=== PATIENT | female | born 1950 | race Hispanic/Latino ===

== ENCOUNTER 2017-12-31 10:53 | Emergency (ER) | payer MEDICARE ==
[2017-12-31] MEDS ORDERED: NACL 0.9% 1000 ML 1,000 ML IV ONE ×3 (11:13→12:42)
[2017-12-31 11:27] LABS: Basophils % (Auto) 0.5 % (0.0-1.8); Eosinophils # (Auto) 0.2 K/mm3 (0.0-0.4); Hematocrit 33.4 % (30.3-42.9); Lymphocytes # (Auto) 1.4 K/mm3 (1.2-5.4); Lymphocytes % (Auto) 16.3 % (13.4-35.0); Mean Corpuscular HGB Conc 33 % (30-34); Mean Corpuscular Hemoglobin 27 pg (28-32); Mean Corpuscular Volume 81 fl (79-97); Monocytes # (Auto) 0.8 K/mm3 (0.0-0.8); Monocytes % (Auto) 9.3 % (0.0-7.3); Platelet Count 243 K/mm3 (140-440); Red Blood Count 4.14 M/mm3 (3.65-5.03)
[2017-12-31 11:47] LABS: Alanine Aminotransferase 8 units/L (7-56); Albumin 4.1 g/dL (3.9-5); BUN/Creatinine Ratio 7; Blood Urea Nitrogen 5 mg/dL (7-17); Calcium 8.9 mg/dL (8.4-10.2); Hemolysis Index 3
[2017-12-31 12:03] LABS: Bacteria,Urine 1+ /HPF (Negative); Bilirubin,Urine NEG (Negative); Blood,Urine NEG (Negative); Color,Urine Yellow (Yellow); Protein,Urine <15 mg/dL mg/dL (Negative); Urobilinogen,Urine < 2.0 mg/dL (<2.0)
[2017-12-31] MEDS ORDERED: PEPCID IV ONE (12:41)
[2017-12-31] MEDS ORDERED: BENTYL IM ONE (12:41)
[2017-12-31] MEDS ORDERED: TORADOL IV ONE (12:43)
--- NOTE | 2017-12-31 12:45 | Emergency Department Report ---
Blank Doc - Documentation Documentation: Patient is a 67-year-old female who is presenting with right upper quadrant pain nausea vomiting diarrhea for the past 4 days. Patient is has some episodes of being weak and dizzy as well. Patient denies fever. Patient denies hematemesis or hematochezia. Patient had a Whipple procedure done approximately 10 years ago. Patient has a history of system or pancreas. Patient on focused physical exam does have some right upper quadrant tenderness but no rebound or guarding active bowel sounds. Patient will be moved to a treatment room for IV fluids. After reviewing the patient's initial labs done on nurse protocol sodium was 129. Patient be given this for symptomatically relief and a CT will be ordered as well.
--- NOTE | 2017-12-31 14:25 | Cat Scan Report ---
FINAL REPORT EXAM: CT ABDOMEN PELVIS W CON HISTORY: NVD RUQ pain hx of whipple TECHNIQUE: CT examination of the ABDOMEN after IV contrast CT examination of the PELVIS after IV contrast PRIORS: 11/12/2013 FINDINGS: Degenerative change in the regional skeleton. 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 Stable severe compression fracture deformity of T12 with retropulsion and central canal stenosis. Stable slight upper endplate compression fracture deformities of L1 and L2. Stable slight compression fracture deformity of L3. Left proximal femur hardware in place. Surgically absent gallbladder. Peripancreatic postoperative change compatible with history of Whipple's procedure. Normal-appearing liver, adrenals, remnant pancreas, and spleen. Intact normal caliber abdominal aorta with severe calcified and noncalcified atherosclerotic plaque. Normal caliber IVC. Normal-appearing kidneys and ureters. Slight diastasis recti in the region of prior abdominal wall surgery. No inguinal hernia. No retroperitoneal adenopathy. No visible mesenteric mass. Normal-appearing stomach. Postoperative changes again noted in the duodenum. There is nonspecific new slight prominence of fluid in the right upper quadrant small bowel and new slight prominence of the common bile duct containing fluid. Common bile duct diameter 7 mm. These findings are nonspecific and may reflect paralytic ileus in the operative bed. No CT evidence of discrete new mass in the right upper quadrant. No gross small bowel distention in the abdomen and pelvis. No pelvic free fluid. No gross ascites, free air, or colonic distention. Normal-appearing cecum and terminal ileum. Appendix not visible. No pericecal inflammation. Nonspecific slight distention of the urinary bladder. Slight gas-filled distention of the rectum. Slight diverticulosis scattered in sigmoid colon. No CT evidence of diverticulitis. IMPRESSION: Nonspecific new prominence of fluid and caliber in right upper quadrant small bowel in the region of the Whipple's procedure. There is also new slight prominence of the common bile duct. No discrete CT evidence of mass or obstructing source. Change in the small bowel may reflect localized paralytic ileus Stable multiple compression fractures in the thoracic and lumbar spine Nonspecific distention of the urinary bladder and gas-filled distention of the rectum Slight sigmoid diverticulosis without evidence of diverticulitis.
--- NOTE | 2017-12-31 15:25 | Emergency Department Report ---
ED Abdominal Pain HPI - General Chief Complaint: Nausea/Vomiting/Diarrhea Stated Complaint: NAUSEA/VOMITING/DIARRHEA Time Seen by Provider: 12/31/17 12:34 Source: patient Mode of arrival: Ambulatory Limitations: Physical Limitation - History of Present Illness Initial Comments: Patient is a 67-year-old female who is presenting with right upper quadrant pain nausea vomiting diarrhea for the past 4 days. Patient is has some episodes of being weak and dizzy as well. Patient denies fever. Patient denies hematemesis or hematochezia. Patient had a Whipple procedure done approximately 10 years ago. Patient has a history of system or pancreas. Location: RUQ Radiation: none Severity scale (0 -10): 8 Quality: aching Consistency: constant Associated Symptoms: nausea, vomiting, diarrhea. denies: fever, dysuria, hematemesis, hematochezia - Related Data Home Medications Medication Instructions Recorded Confirmed Last Taken ALBUTEROL Inhaler (OR & NICU) 1 puff IH PRN PRN 11/12/13 11/12/13 11/11/13 [ProAir HFA Inhaler] ALBUTEROL NEB's [Proventil 0.083% 3 ml INHALATION Q6H 11/12/13 11/12/13 11/11/13 NEBS] Dexlansoprazole [Dexilant] 60 mg PO DAILY 11/12/13 11/12/13 11/11/13 Ergocalciferol [Vitamin D2] 1 cap PO QWEEK 11/12/13 11/12/13 11/06/13 HYDROcodone/ACETAMINOPHEN 1 each PO TID 11/12/13 11/12/13 11/11/13 [Hydrocodon-Acetaminophn 10-325] Hyoscyamine Sr (Nf) [Hyomax SR TAB] 1 tab PO Q12H 11/12/13 11/12/13 11/11/13 Ibuprofen [Motrin 800 MG tab] 800 mg PO Q6H PRN 11/12/13 11/12/13 11/11/13 16:00 Ipratropium [place] 0.2 mg IH QID 11/12/13 11/12/13 11/11/13 Lipase/Protease/Amylase [Creon Dr 2 - 3 cap PO TIDWM 11/12/13 11/12/13 11/11/13 12,000 Units Capsule] Nystatin/Lidocaine/Diphenhyd 5 ml MM QID 11/12/13 11/12/13 11/11/13 [First-Bxn Mouthwash] Perampanel [Fycompa] 2 mg PO HS 11/12/13 11/12/13 11/11/13 Promethazine [Phenergan TAB] 25 mg PO BID 11/12/13 11/12/13 11/11/13 Spironolactone 50 mg PO BID 11/12/13 11/12/13 11/11/13 Umeclidinium Brm/Vilanterol Tr 1 inh INHALATION DAILY 11/12/13 11/12/13 11/11/13 [Anoro Ellipta 62.5-25 Mcg INH] cloNIDine [Catapres] 0.1 mg PO Q4HR PRN 11/12/13 11/12/13 10/23/13 fentaNYL [Duragesic 100mcg] 1 each TD Q72HR 11/12/13 11/12/13 11/09/13 Previous Rx's Medication Instructions Recorded Last Taken Type Insulin Glargine,Hum.rec.anlog 20 unit SQ QHS #1 vial 11/14/13 Unknown Rx [Lantus] Insulin Glulisine [Apidra] 0 - 10 units SUB-Q AC PRN #1 vial 11/14/13 Unknown Rx predniSONE [Deltasone] 40 mg PO QDAY #33 tablet 11/14/13 Unknown Rx Promethazine [Phenergan TAB] 25 mg PO Q6HR PRN #10 tab 12/31/17 Unknown Rx Promethazine [Phenergan] 25 mg PA Q6HR PRN #7 supp.rect 12/31/17 Unknown Rx Allergies Allergy/AdvReac Type Severity Reaction Status Date / Time butorphanol tartrate Allergy Shortness Verified 11/12/13 00:29 [From Stadol] of Breath gabapentin [From Neurontin] Allergy Swelling Verified 09/03/15 13:08 levetiracetam [From Keppra] Allergy Seizure Verified 11/12/13 00:29 methadone [Methadone] Allergy Hives Verified 11/12/13 00:29 omeprazole [From Prilosec] Allergy Swelling Verified 11/12/13 00:29 omeprazole magnesium Allergy Swelling Verified 11/12/13 00:29 [From Prilosec] ondansetron HCl [From Zofran] Allergy Hives Verified 11/12/13 00:29 prednisone Allergy Unknown Verified 11/12/13 00:29 ED Review of Systems ROS: Stated complaint: NAUSEA/VOMITING/DIARRHEA Other details as noted in HPI Comment: All other systems reviewed and negative ED Past Medical Hx - Past Medical History Previous Medical History?: Yes Hx Hypertension: Yes Hx Congestive Heart Failure: No Hx Diabetes: No Hx Arthritis: Yes Hx Seizures: Yes Hx Psychiatric Treatment: Yes (depression) Hx Asthma: Yes Hx COPD: Yes Additional medical history: pancreatitis. endometriosis - Surgical History Past Surgical History?: Yes Hx Cholecystectomy: Yes Hx Appendectomy: Yes Additional Surgical History: hysterectomy, x2, hernia repair, whipple. cataract surgery - Social History Smoking Status: Current Every Day Smoker Substance Use Type: Prescribed, Tranquilizers - Medications Home Medications: Home Medications Medication Instructions Recorded Confirmed Last Taken Type ALBUTEROL Inhaler (OR & NICU) 1 puff IH PRN PRN 11/12/13 11/12/13 11/11/13 History [ProAir HFA Inhaler] ALBUTEROL NEB's [Proventil 0.083% 3 ml INHALATION Q6H 11/12/13 11/12/13 History NEBS] Dexlansoprazole [Dexilant] 60 mg PO DAILY 11/12/13 11/12/13 11/11/13 History Ergocalciferol [Vitamin D2] 1 cap PO QWEEK 11/12/13 11/12/13 11/06/13 History HYDROcodone/ACETAMINOPHEN 1 each PO TID 11/12/13 11/12/13 11/11/13 History [Hydrocodon-Acetaminophn 10-325] Hyoscyamine Sr (Nf) [Hyomax SR TAB] 1 tab PO Q12H 11/12/13 11/12/13 11/11/13 History Ibuprofen [Motrin 800 MG tab] 800 mg PO Q6H PRN 11/12/13 11/12/13 11/11/13 16: 00 History Ipratropium [place] 0.2 mg IH QID 11/12/13 11/12/13 11/11/13 History Lipase/Protease/Amylase [Creon Dr 2 - 3 cap PO TIDWM 07/11/12/13 11/11/13 History 12,000 Units Capsule] Nystatin/Lidocaine/Diphenhyd 5 ml MM QID 11/12/13 11/12/13 11/11/13 History [First-Bxn Mouthwash] Perampanel [Fycompa] 2 mg PO HS 11/12/13 11/12/13 11/11/13 History Promethazine [Phenergan TAB] 25 mg PO BID 11/12/13 11/12/13 11/11/13 History Spironolactone 50 mg PO BID 11/12/13 11/12/13 11/11/13 History Umeclidinium Brm/Vilanterol Tr 1 inh INHALATION DAILY 11/12/13 11/12/13 History [Anoro Ellipta 62.5-25 Mcg INH] cloNIDine [Catapres] 0.1 mg PO Q4HR PRN 11/12/13 11/12/13 10/23/13 History fentaNYL [Duragesic 100mcg] 1 each TD Q72HR 11/12/13 11/12/13 11/09/13 History Insulin Glargine,Hum.rec.anlog 20 unit SQ QHS #1 vial 11/14/13 Unknown Rx [Lantus] Insulin Glulisine [Apidra] 0 - 10 units SUB-Q AC PRN #1 vial 11/14/13 Unknown Rx predniSONE [Deltasone] 40 mg PO QDAY #33 tablet 11/14/13 Unknown Rx Promethazine [Phenergan TAB] 25 mg PO Q6HR PRN #10 tab 12/31/17 Unknown Rx Promethazine [Phenergan] 25 mg PA Q6HR PRN #7 supp.rect 12/31/17 Unknown Rx ED Physical Exam - General Limitations: Physical Limitation General appearance: alert, in no apparent distress - Head Head exam: Present: atraumatic, normocephalic - Eye Eye exam: Present: normal appearance - ENT ENT exam: Present: mucous membranes moist - Neck Neck exam: Present: normal inspection - Respiratory Respiratory exam: Present: normal lung sounds bilaterally. Absent: respiratory distress, wheezes, rales, rhonchi - Cardiovascular Cardiovascular Exam: Present: regular rate, normal rhythm, normal heart sounds. Absent: systolic murmur, diastolic murmur, rubs, gallop - GI/Abdominal GI/Abdominal exam: Present: soft, tenderness (RUQ), hyperactive bowel sounds. Absent: distended, guarding, rebound, rigid, mass, bruit, pulsatile mass - Extremities Exam Extremities exam: Present: normal inspection - Back Exam Back exam: Present: normal inspection - Neurological Exam Neurological exam: Present: alert, oriented X3 - Psychiatric Psychiatric exam: Present: normal affect, normal mood - Skin Skin exam: Present: warm, dry, intact, normal color. Absent: rash ED Course Vital Signs 12/31/17 11:09 Temperature 98.7 F Pulse Rate 94 H Respiratory 18 Rate Blood Pressure 150/52 O2 Sat by Pulse 94 Oximetry ED Medical Decision Making - Lab Data Result diagrams: 12/31/17 11:16 12/31/17 11:16 Lab Results 12/31/17 12/31/17 12/31/17 Range/Units 11:16 11:16 11:20 WBC 8.9 (4.5-11.0) K/mm3 RBC 4.14 (3.65-5.03) M/mm3 Hgb 11.0 (10.1-14.3) gm/dl Hct 33.4 (30.3-42.9) % MCV 81 (79-97) fl MCH 27 L (28-32) pg MCHC 33 (30-34) % RDW 18.0 H (13.2-15.2) % Plt Count 243 (140-440) K/mm3 Lymph % (Auto) 16.3 (13.4-35.0) % [place] % (Auto) 9.3 H (0.0-7.3) % Eos % (Auto) 2.0 (0.0-4.3) % Baso % (Auto) 0.5 (0.0-1.8) % Lymph # 1.4 (1.2-5.4) K/mm3 [place] # 0.8 (0.0-0.8) K/mm3 Eos # 0.2 (0.0-0.4) K/mm3 Baso # 0.0 (0.0-0.1) K/mm3 Seg Neutrophils % 71.9 H (40.0-70.0) % Seg Neutrophils # 6.4 (1.8-7.7) K/mm3 Sodium 129 L (137-145) mmol/L Potassium 4.1 (3.6-5.0) mmol/L Chloride 90.7 L (98-107) mmol/L Carbon Dioxide 28 (22-30) mmol/L Anion Gap 14 mmol/L BUN 5 L (7-17) mg/dL Creatinine 0.7 (0.7-1.2) mg/dL Estimated GFR > 60 ml/min BUN/Creatinine Ratio 7 % Glucose 123 H (65-100) mg/dL Calcium 8.9 (8.4-10.2) mg/dL Total Bilirubin 0.30 (0.1-1.2) mg/dL AST 12 (5-40) units/L ALT 8 (7-56) units/L Alkaline Phosphatase 86 (35-129) units/L Total Protein 6.5 (6.3-8.2) g/dL Albumin 4.1 (3.9-5) g/dL Albumin/Globulin Ratio 1.7 % Lipase 11 L (13-60) units/L Urine Color (Yellow) Urine Turbidity (Clear) Urine pH (5.0-7.0) Ur Specific Roff (1.003-1.030) Urine Protein (Negative) mg/dL Urine Glucose (UA) (Negative) mg/dL Urine Ketones (Negative) mg/dL Urine Blood (Negative) Urine Nitrite (Negative) Urine Bilirubin (Negative) Urine Urobilinogen (<2.0) mg/dL Ur Leukocyte Esterase (Negative) Urine WBC (Auto) (0.0-6.0) /HPF Urine RBC (Auto) (0.0-6.0) /HPF U Epithel Cells (Auto) (0-13.0) /HPF Urine Bacteria (Auto) (Negative) /HPF 12/31/17 Range/Units 11:47 WBC (4.5-11.0) K/mm3 RBC (3.65-5.03) M/mm3 Hgb (10.1-14.3) gm/dl Hct (30.3-42.9) % MCV (79-97) fl MCH (28-32) pg MCHC (30-34) % RDW (13.2-15.2) % Plt Count (140-440) K/mm3 Lymph % (Auto) (13.4-35.0) % [place] % (Auto) (0.0-7.3) % Eos % (Auto) (0.0-4.3) % Baso % (Auto) (0.0-1.8) % Lymph # (1.2-5.4) K/mm3 [place] # (0.0-0.8) K/mm3 Eos # (0.0-0.4) K/mm3 Baso # (0.0-0.1) K/mm3 Seg Neutrophils % (40.0-70.0) % Seg Neutrophils # (1.8-7.7) K/mm3 Sodium (137-145) mmol/L Potassium (3.6-5.0) mmol/L Chloride (98-107) mmol/L Carbon Dioxide (22-30) mmol/L Anion Gap mmol/L BUN (7-17) mg/dL Creatinine (0.7-1.2) mg/dL Estimated GFR ml/min BUN/Creatinine Ratio % Glucose (65-100) mg/dL Calcium (8.4-10.2) mg/dL Total Bilirubin (0.1-1.2) mg/dL AST (5-40) units/L ALT (7-56) units/L Alkaline Phosphatase (35-129) units/L Total Protein (6.3-8.2) g/dL Albumin (3.9-5) g/dL Albumin/Globulin Ratio % Lipase (13-60) units/L Urine Color Yellow (Yellow) Urine Turbidity Clear (Clear) Urine pH 6.0 (5.0-7.0) Ur Specific Roff 1.005 (1.003-1.030) Urine Protein <15 mg/dl (Negative) mg/dL Urine Glucose (UA) Neg (Negative) mg/dL Urine Ketones Neg (Negative) mg/dL Urine Blood Neg (Negative) Urine Nitrite Neg (Negative) Urine Bilirubin Neg (Negative) Urine Urobilinogen < 2.0 (<2.0) mg/dL Ur Leukocyte Esterase Sm (Negative) Urine WBC (Auto) 4.0 (0.0-6.0) /HPF Urine RBC (Auto) 3.0 (0.0-6.0) /HPF U Epithel Cells (Auto) 3.0 (0-13.0) /HPF Urine Bacteria (Auto) 1+ (Negative) /HPF - Radiology Data Patient: VIVIEN ODEN MR#: [id number] : 1950 Acct:[id number] Age/Sex: 67 / F ADM Date: 12/31/17 Loc: ED Attending Dr: Ordering Physician: CLINTON SIMS MD Date of Service: 12/31/17 Procedure(s): CT abdomen pelvis w con Accession Number(s): [id number] cc: CLINTON SIMS MD FINAL REPORT EXAM: CT ABDOMEN PELVIS W CON HISTORY: NVD RUQ pain hx of whipple TECHNIQUE: CT examination of the ABDOMEN after IV contrast CT examination of the PELVIS after IV contrast PRIORS: 11/12/2013 FINDINGS: Degenerative change in the regional skeleton. 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 Stable severe compression fracture deformity of T12 with retropulsion and central canal stenosis. Stable slight upper endplate compression fracture deformities of L1 and L2. Stable slight compression fracture deformity of L3. Left proximal femur hardware in place. Surgically absent gallbladder. Peripancreatic postoperative change compatible with history of Whipple's procedure. Normal-appearing liver, adrenals, remnant pancreas, and spleen. Intact normal caliber abdominal aorta with severe calcified and noncalcified atherosclerotic plaque. Normal caliber IVC. Normal-appearing kidneys and ureters. Slight diastasis recti in the region of prior abdominal wall surgery. No inguinal hernia. No retroperitoneal adenopathy. No visible mesenteric mass. Normal-appearing stomach. Postoperative changes again noted in the duodenum. There is nonspecific new slight prominence of fluid in the right upper quadrant small bowel and new slight prominence of the common bile duct containing fluid. Common bile duct diameter 7 mm. These findings are nonspecific and may reflect paralytic ileus in the operative bed. No CT evidence of discrete new mass in the right upper quadrant. No gross small bowel distention in the abdomen and pelvis. No pelvic free fluid. No gross ascites, free air, or colonic distention. Normal-appearing cecum and terminal ileum. Appendix not visible. No pericecal inflammation. Nonspecific slight distention of the urinary bladder. Slight gas-filled distention of the rectum. Slight diverticulosis scattered in sigmoid colon. No CT evidence of diverticulitis. IMPRESSION: Nonspecific new prominence of fluid and caliber in right upper quadrant small bowel in the region of the Whipple's procedure. There is also new slight prominence of the common bile duct. No discrete CT evidence of mass or obstructing source. Change in the small bowel may reflect localized paralytic ileus Stable multiple compression fractures in the thoracic and lumbar spine Nonspecific distention of the urinary bladder and gas-filled distention of the rectum Slight sigmoid diverticulosis without evidence of diverticulitis. Transcribed By: JP Dictated By: ALLYSSA ANDINO MD Electronically Authenticated By: ALLYSSA ANDINO MD Signed Date/Time: 12/31/17 1424 - Medical Decision Making Patient is 67-year-old female status post Whipple approximately 10 years ago who is presenting with right upper quadrant pain. Patient also says nausea vomiting diarrhea. Patient on laboratory studies show that she did have some moderate hyponatremia. Patient was given IV hydration. CT of the abdomen and pelvis showed that she does have a focal ileus in the right upper quadrant. At this visit with the patient and told her that my preference was to keep her in the hospital for continued monitoring and also continue IV fluids patient states that she does not want to stay and is adamant that she wants to see her doctor go home. Patient did sign AGAINST MEDICAL ADVICE form. Patient was given Zofran for her nausea so she can continue to try to hydrate herself at home. Critical care attestation.: If time is entered above; I have spent that time in minutes in the direct care of this critically ill patient, excluding procedure time. ED Disposition Clinical Impression: Ileus, Hyponatremia Disposition: -07 LEFT AGAINST MED ADVICE Is pt being admited?: No Condition: Stable Referrals: PRIMARY CAREMD [Primary Care Provider] - 3-5 Days Forms: AMA Form Time of Disposition: 15:27
[2017-12-31 15:39] VITALS: BP 142/60
== END 2017-12-31 15:37 | disposition left against medical advice (07) ==
LOC: ED 10:53
DX: K56.7 Ileus, unspecified (principal); E87.1 Hypo-osmolality and hyponatremia; I10 Essential (primary) hypertension; M19.90 Unspecified osteoarthritis, unspecified site; F32.9 Major depressive disorder, single episode, unspecified; F17.200 Nicotine dependence, unspecified, uncomplicated; J44.9 Chronic obstructive pulmonary disease, unspecified; Z88.8 Allergy status to other drugs, medicaments and biological substances; Z90.49 Acquired absence of other specified parts of digestive tract; Z90.710 Acquired absence of both cervix and uterus
CPT/HCPCS: 36415; 74177; 80053; 81001; 83690; 85025; 96374; 99284; J0500; J1885; J7030; Q9967

== ENCOUNTER 2018-10-02 08:51 | Outpatient (CLI) | payer MEDICARE ==
[2018-10-02 10:22] LABS: Blood Urea Nitrogen 9 mg/dL (7-17)
--- NOTE | 2018-10-02 17:16 | Cat Scan Report ---
PROCEDURE: CT ANGIO NECK TECHNIQUE: Axial images obtained from the upper thorax through the base of the skull with intravenou s contrast with CTA protocol. Sagittal and coronal reconstructions also obtained. No priors for robert rison. HISTORY: OCCLUSION AND STENOSIS OF BILATERAL CAROTID ARTERIES COMPARISONS: No priors FINDINGS: Atherosclerotic plaque throughout the course of the left common carotid artery with moderate to sever e stenosis distally. Extensive atherosclerotic plaque along the left carotid bifurcation and proximal left internal caroti d artery with diameter stenosis estimated in the range of 50%. Atherosclerotic plaque along the course of the right common carotid artery with mild stenosis distall y. Extensive atherosclerotic plaque along the course of the right internal carotid artery and carotid bi furcation with diameter stenosis estimated in the range of 40%. Internal carotid arteries remain patent bilaterally. No opacification of the right vertebral artery which is occluded proximally. Reconstitution of the di stal right vertebral artery at the level of C3. No aneurysmal dilatation of the ascending thoracic aorta. The lung apices are clear. Degenerative changes of the cervical spine noted. IMPRESSION: Atherosclerotic plaque throughout the course of the left common carotid artery with moderate to sever e stenosis distally. Extensive atherosclerotic plaque along the left carotid bifurcation and proximal left internal caroti d artery with diameter stenosis estimated in the range of 50%. Atherosclerotic plaque along the course of the right common carotid artery with mild stenosis distall y. Extensive atherosclerotic plaque along the course of the right carotid bifurcation and right internal carotid artery with diameter stenosis in the range of 40%. No opacification of the proximal right vertebral artery which is occluded. Reconstitution of the distal right vertebral artery at the level of C3. Assessment performed with NASCET criteria.. This document is electronically signed by Laz Ortiz MD., October 02 2018 06:14:44 PM ET
== END 2018-10-02 08:52 | disposition home or self-care (01) ==
LOC: CT 08:51
PROVIDERS: ATTEND Surgery Vascular Surgery
DX: I65.23 Occlusion and stenosis of bilateral carotid arteries (principal); I87.323 Chronic venous hypertension (idiopathic) with inflammation of bilateral lower extremity; I10 Essential (primary) hypertension; J44.9 Chronic obstructive pulmonary disease, unspecified; Z90.710 Acquired absence of both cervix and uterus
CPT/HCPCS: 36415; 70498; 82565; 84520; Q9967